=== PATIENT | female | born 1975 ===

== ENCOUNTER 2018-06-29 17:45 | Emergency (ER) | payer BC, OTHER ==
[2018-06-29 18:01] VITALS: BP 143/86; PULSE 94; RESP 16; TEMP 98.8; O2SAT 99
[2018-06-29] MEDS ORDERED: Naproxen 500 MG TAB PO STA (19:04)
--- NOTE | 2018-06-29 19:10 | ED PDOC ---
Lower Extremity Pain/Injury Time Seen by Provider: 06/29/18 18:51 Chief Complaint (Nursing): Lower Extremity Problem/Injury Chief Complaint (Provider): Lower Extremity Problem/Injury History Per: Patient History/Exam Limitations: no limitations Onset/Duration Of Symptoms: Hrs (x4) Current Symptoms Are (Timing): Still Present Additional Complaint(s): 42 y/o female presents to the ED for evaluation of a left ankle injury s/p fall, onset 4 hours prior to arrival. Patient states that while at school, she missed one step and fell at approximately 3 o'clock this afternoon, twisting her ankle. Patient rates her pain as a 7/10. Patient denies taking medications prior to arrival. Otherwise: (-) prior ankle injury, (-) prior ankle surgery, (-) head injury. PMD: Basil Thakkar LNMP: 06/02/2018 - Ankle/Foot Description Of Injury: Fell, Twisted Past Medical History Reviewed: Historical Data, Nursing Documentation, Vital Signs Vital Signs: Last Vital Signs Temp 98.8 F 06/29/18 17:59 Pulse 94 H 06/29/18 17:59 Resp 16 06/29/18 17:59 BP 143/86 06/29/18 17:59 Pulse Ox 99 06/29/18 17:59 - Medical History PMH: No Chronic Diseases - Surgical History Surgical History: (x2) - Family History Family History: States: Unknown Family Hx - Home Medications Home Medications: Ambulatory Orders Medication Instructions Recorded Acetaminophen [Acetaminophen 8 650 mg PO Q8 PRN #21 tablet.er 06/29/18 Hour] Meloxicam [Mobic] 15 mg PO DAILY #10 tab 06/29/18 - Allergies Allergies/Adverse Reactions: Allergies Allergy/AdvReac Type Severity Reaction Status Date / Time No Known Allergies Allergy Verified 06/29/18 17:58 Review of Systems ROS Statement: Except As Marked, All Systems Reviewed And Found Negative Musculoskeletal: Positive for: Foot Pain (left ankle pain) Physical Exam - Reviewed Nursing Documentation Reviewed: Yes Vital Signs Reviewed: Yes - Physical Exam Comments: GENERAL APPEARANCE: Patient is awake, alert, oriented x 3, in no acute distress. Patient is ambulatory in the ED with a steady gait. SKIN: Warm, dry; (-) cyanosis. NECK: Supple, FROM ENT: Mucus membranes moist. Airway patent (-) stridor. RESPIRATORY: lungs clear to auscultation bilaterally (-) rales (-) rhonchi (-) wheezing CARDIAC: RRR LOWER EXTREMITY: Ankle: (+) Decreased ROM of the left ankle secondary to pain. (+) tenderness to the lateral malleolus with small effusion. (-) ecchymosis, (-) erythema, (-) warmth, (-) skin break, (-) calf tenderness. Sensation intact. Capillary refill < 2 seconds. (-)swelling or tenderness of the medial aspect of the ankle. Achilles tendon intact and nontender. Knee and foot: (-) injury. CARDIOVASCULAR: (+) distal pulse. NEUROLOGIC: (+) distal sensation. - Laboratory Results Urine POC: Negative - ECG O2 Sat by Pulse Oximetry: 99 (RA) Pulse Ox Interpretation: Normal Medical Decision Making Medical Decision Making: Time: 1899 Impression: Acute ankle pain s/p fall Plan: -- Naproxen 500mg PO -- Ankle Left XR 3 Views -- Re-evaluation 2019 Ankle XRs: (-) fracture (-) dislocation as read by Amy ADAMES Tony wrap ordered. Tony bandage applied by Amy ADAMES. NV intact after placement. RICE encouraged. On re-evaluation, patient reports improvement of symptoms. On exam, patient remains AAOx3, in no acute distress. Vitals stable. Lab/Diagnostic results d/w the patient in great detail. Diagnosis of acute ankle pain/sprain s/p fall d/w the patient. Based on history, exam and diagnostic results, plan will be for outpatient follow up with podiatry. Patient instructed to follow-up with pmd / referral provided / the clinic in 1- 2 days without fail. Advised to take medication as prescribed. Return to the emergency room at any time for any new or worsening symptoms. Patient states she fully agrees with and understands discharge instructions. States that she agrees with the plan and disposition. Verbalized and repeated discharge instructions and plan. I have given the patient opportunity to ask any additional questions. ____ Scribe Attestation: Documented by Igor Perry, acting as a scribe for Sue Reyes PA-C. Provider Scribe Attestation: All medical record entries made by the Scribe were at my direction and personally dictated by me. I have reviewed the chart and agree that the record accurately reflects my personal performance of the history, physical exam, medical decision making, and the department course for this patient. I have also personally directed, reviewed, and agree with the discharge instructions and disposition. Disposition - Clinical Impression Clinical Impression: Ankle pain, Ankle sprain, Fall on stairs - Patient ED Disposition Is Patient to be Admitted: No Counseled Patient/Family Regarding: Studies Performed, Diagnosis, Need For Followup, Rx Given - Disposition Referrals: Podiatry Clinic [Outside] primary, doctor [Other] Disposition: Routine/Home Disposition Time: 20:20 Condition: STABLE Additional Instructions: REST ICE ELEVATE EXTREMITY The emergency medical care you received today was directed at your acute symptoms. If you were prescribed any medication, please fill it and take as directed. It may take several days for your symptoms to resolve. Return to the Emergency Department if your symptoms worsen, do not improve, or if you have any other problems. Please contact your doctor in 2 days for re-evaluation and follow up / or call one of the physicians/clinics you have been referred to that are listed on the Patient Visit Information form that is included in your discharge packet. Bring any paperwork you were given at discharge with you along with any medications you are taking to your follow up visit. Our treatment cannot replace ongoing medical care by a primary care provider (PCP) outside of the emergency department. Prescriptions: Acetaminophen [Acetaminophen 8 Hour] 650 mg PO Q8 PRN #21 tablet.er PRN Reason: Pain, Moderate (4-7) Meloxicam [Mobic] 15 mg PO DAILY #10 tab Instructions: Ankle Sprain, Ankle Strengthening Exercises, How to Use an Elastic Bandage Forms: [employer] (Salvadorean) Print Language: KHMER - POA Present On Arrival: Falls Or Trauma (earlier today)
[2018-06-29] MEDS ORDERED: Naproxen 500 MG TAB PO ONE (20:03)
--- NOTE | 2018-06-30 13:08 | RAD ---
PROCEDURE: Left Ankle Radiographs. HISTORY: s/p fall, joint pain COMPARISON: None FINDINGS: BONES: No acute displaced fracture. JOINTS: No dislocation. SOFT TISSUES: Unremarkable. No evidence of radiopaque foreign body. OTHER FINDINGS: None. IMPRESSION: No acute displaced fracture, dislocation, or significant joint effusion identified. If symptoms persist or if there is clinical concern, x-ray follow-up in 7-10 days should be considered.
== END 2018-06-29 20:45 | disposition home or self-care (01) ==
LOC: H.ER 17:45
DX: S93.402A Sprain of unspecified ligament of left ankle, initial encounter (principal); W10.9XXA Fall (on) (from) unspecified stairs and steps, initial encounter; Y92.89 Other specified places as the place of occurrence of the external cause